=== PATIENT | female | born 1960 | race Two or more races ===

== ENCOUNTER 2017-01-13 06:12 | Inpatient (IN) | payer SELFPAY ==
[~2017-01-13] VITALS: Ht 149.9 cm; Wt 69.9 kg
[~2017-01-13 06:12] MED LIST: AMLO5TAB2 PO; ATOR20TA9 PO; CEFD300C37 PO; ERGO500017 PO; FAMO-79 PO; FAMO20TA7 PO; INSU100I28 AD; INSU100I28 SQ-INSULIN; LOSA25TA2 PO; LOSA50TA6 PO; MECL12.52 PO; METF10002 PO
[2017-01-13] MEDS ORDERED: SODIUM CHLORIDE 0.9% 1,000ML IVBOLUS ONE (08:00)
[2017-01-13] MEDS ORDERED: SODIUM CHLORIDE FLUSH 10ML SYR IVF ONE (08:00)
[2017-01-13] MEDS ORDERED: MORPHINE SULFATE 4 MG/ML, 1ML IVPush PRN ×2 (08:00→10:30)
[2017-01-13] MEDS ORDERED: ONDANSETRON 2MG/ML, 2ML IVPush ONE (08:00)
[2017-01-13] MEDS ORDERED: MORPHINE SULFATE 4 MG/ML, 1ML ONE (08:25)
[2017-01-13] MEDS ORDERED: ONDANSETRON 2MG/ML, 2ML ONE (08:26)
[2017-01-13 08:48] LABS: BLOOD UREA NITROGEN 49 mg/dL (7-18)
[2017-01-13] MEDS ORDERED: GLIP5TAB10 PO (08:49)
[2017-01-13] MEDS ORDERED: CEFTRIAXONE PMX 1GM/50ML 50 ML IV ONE (09:30)
[2017-01-13] MEDS ORDERED: SODIUM CHLORIDE 0.9%, 500ML IVBOLUS ONE (09:30)
[2017-01-13] MEDS ORDERED: CEFTRIAXONE PMX 1GM/50ML 50 ML ONE (10:16)
[2017-01-13] MEDS ORDERED: BISACODYL 10 MG SUPP PR PRN (10:30)
[2017-01-13] MEDS ORDERED: FUROSEMIDE 20 MG/2 ML IV ONE (10:30)
[2017-01-13] MEDS ORDERED: LABETALOL 5MG/ML, 20ML IV PRN (10:30)
[2017-01-13 10:56] VITALS: BP 163/86
[2017-01-13] MEDS: SODIUM CHLORIDE 0.9% 1,000 ML IV SCH (11:41)
[2017-01-13] MEDS: INSULIN REGULAR 100 UNITS/ML, 3ML VIAL SQ-INSULIN SCH ×3 (12:34→21:00)
[2017-01-13 13:07] VITALS: BP 146/72
[2017-01-13] MEDS ORDERED: DOCUSATE 100 MG CAPSULE PO PRN (21:00)
[2017-01-13] MEDS ORDERED: ATORVASTATIN 20 MG TABLET PO SCH (21:00)
[2017-01-13 21:45] VITALS: BP 150/70
[2017-01-13] MEDS: INSULIN DETEMIR 100 UNITS/ML, PEN SQ-INSULIN SCH (22:38)
[2017-01-13] MEDS: POLYETHYLENE GLYCOL 17 GM PACKET PO PRN (22:38)
[2017-01-13] MEDS: ACETAMINOPHEN 325 MG TABLET PO PRN (22:38)
[2017-01-13] MEDS: CEFTRIAXONE PMX 2GM/50ML 50 ML IV SCH (22:38)
[2017-01-13] MEDS: ATORVASTATIN 10 MG TABLET PO SCH (22:40)
[2017-01-14 04:02] VITALS: BP 127/58
[2017-01-14 06:43] LABS: BLOOD UREA NITROGEN 39 mg/dL (7-18)
[2017-01-14] MEDS: INSULIN REGULAR 100 UNITS/ML, 3ML VIAL SQ-INSULIN SCH ×4 (07:00→21:27)
[2017-01-14 08:14] VITALS: BP 137/79
[2017-01-14] MEDS: SODIUM CHLORIDE 0.9% 1,000 ML IV SCH (09:30)
[2017-01-14] MEDS: INSULIN DETEMIR 100 UNITS/ML, PEN SQ-INSULIN SCH ×2 (09:32→21:28)
[2017-01-14] MEDS: POLYETHYLENE GLYCOL 17 GM PACKET PO PRN (09:50)
[2017-01-14] MEDS ORDERED: SODIUM CHLORIDE NASAL SPRAY 45ML BOTTLE NAS PRN (10:00)
[2017-01-14 15:53] VITALS: BP 167/80
[2017-01-14 19:31] VITALS: BP 181/80
[2017-01-14] MEDS: ACETAMINOPHEN 325 MG TABLET PO PRN (19:34)
[2017-01-14] MEDS: ATORVASTATIN 10 MG TABLET PO SCH (21:28)
[2017-01-14] MEDS ORDERED: MAGNESIUM HYDROXIDE 8%, 30ML UDC PO ONE (21:30)
[2017-01-14 21:36] VITALS: BP 170/84
[2017-01-14] MEDS ORDERED: TEMAZEPAM 15 MG CAPSULE PO PRN (22:00)
[2017-01-14] MEDS: CEFTRIAXONE PMX 2GM/50ML 50 ML IV SCH (22:43)
[2017-01-15 01:08] VITALS: BP 163/83
[2017-01-15 05:50] LABS: BLOOD UREA NITROGEN 35 mg/dL (7-18)
[2017-01-15] MEDS: INSULIN REGULAR 100 UNITS/ML, 3ML VIAL SQ-INSULIN SCH ×4 (07:00→21:11)
[2017-01-15 07:50] VITALS: BP 142/72
[2017-01-15] MEDS: SODIUM CHLORIDE 0.9% 1,000 ML IV SCH ×2 (09:34→18:27)
[2017-01-15] MEDS: ONDANSETRON 2MG/ML, 2ML IVP PRN ×2 (09:38→16:13)
[2017-01-15] MEDS: HYDROcodone/APAP 5/325 TABLET PO PRN ×3 (09:38→22:43)
[2017-01-15] MEDS: INSULIN DETEMIR 100 UNITS/ML, PEN SQ-INSULIN SCH ×2 (09:39→21:12)
[2017-01-15 12:35] VITALS: BP 154/78
[2017-01-15 20:05] VITALS: BP 167/64
[2017-01-15] MEDS: ATORVASTATIN 10 MG TABLET PO SCH (21:12)
[2017-01-15] MEDS: CEFTRIAXONE PMX 2GM/50ML 50 ML IV SCH (22:36)
[2017-01-16] VITALS (7 sets, daily range): BP systolic 152–186; BP diastolic 66–93
[2017-01-16 05:41] LABS: BLOOD UREA NITROGEN 29 mg/dL (7-18)
[2017-01-16] MEDS: INSULIN REGULAR 100 UNITS/ML, 3ML VIAL SQ-INSULIN SCH ×4 (07:00→20:24)
[2017-01-16] MEDS: ONDANSETRON 2MG/ML, 2ML IVP PRN ×2 (08:14→15:38)
[2017-01-16] MEDS: HYDROcodone/APAP 5/325 TABLET PO PRN ×2 (08:15→23:36)
[2017-01-16] MEDS ORDERED: FUROSEMIDE 20 MG/2 ML IV SCH (09:00)
[2017-01-16] MEDS: INSULIN DETEMIR 100 UNITS/ML, PEN SQ-INSULIN SCH ×2 (09:16→20:36)
[2017-01-16] MEDS ORDERED: SODIUM POLYSTYRENE SULFONATE ORAL SUSP PO ONE (13:30)
[2017-01-16] MEDS ORDERED: CALCIUM GLUCONATE 4.6 MEQ in SODIUM CHLORIDE 0.9% 50 ML IV ONE (13:30)
[2017-01-16] MEDS: SODIUM CHLORIDE 0.9% 1,000 ML IV SCH ×2 (14:17→23:25)
[2017-01-16] MEDS: ATORVASTATIN 10 MG TABLET PO SCH (19:32)
[2017-01-16] MEDS: SODIUM BICARBONATE 650 MG TABLET PO SCH (19:32)
[2017-01-16] MEDS: CEFTRIAXONE PMX 2GM/50ML 50 ML IV SCH (23:24)
[2017-01-17 02:00] VITALS: BP 148/76
[2017-01-17 06:19] LABS: BLOOD UREA NITROGEN 30 mg/dL (7-18)
[2017-01-17 06:40] VITALS: BP 165/79
[2017-01-17] MEDS: INSULIN REGULAR 100 UNITS/ML, 3ML VIAL SQ-INSULIN SCH ×2 (07:00→11:00)
[2017-01-17] MEDS: SODIUM BICARBONATE 650 MG TABLET PO SCH (08:28)
[2017-01-17] MEDS: INSULIN DETEMIR 100 UNITS/ML, PEN SQ-INSULIN SCH (08:29)
[2017-01-17] MEDS: ONDANSETRON 2MG/ML, 2ML IVP PRN (08:36)
[2017-01-17 11:50] VITALS: BP 154/74
[2017-01-17] MEDS ORDERED: ONDA4TAB10 PO (14:06)
== END 2017-01-17 16:37 | disposition home or self-care (01) | DRG 682 ==
LOC: ED 09:31 → EDIP 09:32 → ED 09:42 → 3NE 10:41 → 4WST 01-16 15:38 → DCLOUNGE 01-17 15:52
PROVIDERS: ADMIT Internal Medicine; ATTEND Internal Medicine
DX: N17.0 Acute kidney failure with tubular necrosis (principal); E43 Unspecified severe protein-calorie malnutrition; N39.0 Urinary tract infection, site not specified; E78.5 Hyperlipidemia, unspecified; E87.5 Hyperkalemia; E11.65 Type 2 diabetes mellitus with hyperglycemia; N18.9 Chronic kidney disease, unspecified; D64.9 Anemia, unspecified; I13.10 Hypertensive heart and chronic kidney disease without heart failure, with stage 1 through stage 4 chronic kidney disease, or unspecified chronic kidney disease; E11.22 Type 2 diabetes mellitus with diabetic chronic kidney disease; Z79.4 Long term (current) use of insulin; Z98.51 Tubal ligation status; Z83.3 Family history of diabetes mellitus; Z68.31 Body mass index [BMI] 31.0-31.9, adult; Z79.84 Long term (current) use of oral hypoglycemic drugs
CPT/HCPCS: 36415; 76770; 80048; 81001; 82040; 82436; 82570; 82728; 82962; 83036; 83540; 83550; 83605; 84132; 84133; 84300; 84466; 85025; 87040; 87086; 93005; 96361; 96374; 96375; J0610; J0696; J1815; J2405; J1940; J7030; J7040

== ENCOUNTER 2017-02-07 11:03 | Inpatient (IN) | payer MEDICAID, OTHER ==
[~2017-02-07] VITALS: Ht 154.9 cm; Wt 66.3 kg
[~2017-02-07 11:03] MED LIST changes: +GLIP5TAB10 PO; +ONDA4TAB10 PO
[2017-02-07] MEDS ORDERED: CEPH-376 PO (11:25)
[2017-02-07] MEDS ORDERED: LOSA100T6 PO (11:25)
[2017-02-07] MEDS ORDERED: METH750T2 PO (11:25)
[2017-02-07] MEDS ORDERED: ONDA4TAB13 SL (11:25)
[2017-02-07] MEDS ORDERED: SODIUM CHLORIDE FLUSH 10ML SYR IVF ONE (12:00)
[2017-02-07] MEDS ORDERED: SODIUM CHLORIDE 0.9% 1,000 ML IV ONE (12:00)
[2017-02-07] MEDS ORDERED: ONDANSETRON 2MG/ML, 2ML IVPush ONE (12:00)
[2017-02-07] MEDS ORDERED: MORPHINE SULFATE 4 MG/ML, 1ML IVPush PRN (12:00)
[2017-02-07] MEDS ORDERED: MORPHINE SULFATE 4 MG/ML, 1ML ONE (12:17)
[2017-02-07] MEDS ORDERED: ONDANSETRON 2MG/ML, 2ML ONE (12:17)
[2017-02-07 12:36] LABS: ASPARTATE AMINO TRANSFERASE 16 U/L (15-37); BLOOD UREA NITROGEN 48 mg/dL (7-18)
[2017-02-07] MEDS ORDERED: hydrALAzine 20 MG/ML, 1ML IVPush PRN (15:00)
[2017-02-07] MEDS ORDERED: POLYETHYLENE GLYCOL 17 GM PACKET PO PRN (15:00)
[2017-02-07] MEDS ORDERED: ACETAMINOPHEN 325 MG TABLET PO PRN (15:00)
[2017-02-07] MEDS ORDERED: PHARMACY MAY ADJ FOR RENAL FX MC PRN (15:00)
[2017-02-07] MEDS ORDERED: LORazepam 2 MG/ML, 1ML IVPush PRN (15:00)
[2017-02-07] MEDS ORDERED: CYCLOBENZAPRINE 10 MG TABLET PO PRN (15:00)
[2017-02-07] MEDS ORDERED: DOCUSATE 100 MG CAPSULE PO PRN (15:00)
[2017-02-07 15:11] LABS: PTH INTACT INTERPRETATION ** Comment **
[2017-02-07 15:57] LABS: PARATHYROID HORMONE INTACT 100.9 pg/mL (14-72)
[2017-02-07] MEDS: INSULIN ASPART 100 UNITS/ML, PEN SQ-INSULIN SCH ×2 (16:00→21:13)
[2017-02-07 16:45] VITALS: BP 152/83
[2017-02-07] MEDS: FUROSEMIDE 40 MG/4 ML IV SCH (17:05)
[2017-02-07] MEDS: HEPARIN 5,000 UNITS/ML, 1ML SQ SCH (17:05)
[2017-02-07] MEDS: CEFOTETAN PMX 2GM/50ML 50 ML IV SCH (17:52)
[2017-02-07 19:23] VITALS: BP 123/65
[2017-02-07] MEDS: INSULIN DETEMIR 100 UNITS/ML, PEN SQ-INSULIN SCH (21:12)
[2017-02-07] MEDS: HYDROcodone/APAP 5/325 TABLET PO PRN (21:13)
[2017-02-07] MEDS: ATORVASTATIN 40 MG TABLET PO SCH (21:13)
[2017-02-08 02:38] VITALS: BP 145/75
[2017-02-08] MEDS: HYDROcodone/APAP 5/325 TABLET PO PRN (04:57)
[2017-02-08] MEDS: HEPARIN 5,000 UNITS/ML, 1ML SQ SCH ×3 (04:57→22:41)
[2017-02-08 06:20] LABS: ASPARTATE AMINO TRANSFERASE 16 U/L (15-37); BLOOD UREA NITROGEN 47 mg/dL (7-18)
[2017-02-08] MEDS: INSULIN ASPART 100 UNITS/ML, PEN SQ-INSULIN SCH ×4 (07:00→22:44)
[2017-02-08 07:13] VITALS: BP 122/68
[2017-02-08] MEDS: ONDANSETRON 2MG/ML, 2ML IVPush PRN (08:10)
[2017-02-08] MEDS: FUROSEMIDE 40 MG/4 ML IV SCH ×3 (08:10→22:41)
[2017-02-08] MEDS: INSULIN DETEMIR 100 UNITS/ML, PEN SQ-INSULIN SCH ×2 (09:00→21:00)
[2017-02-08] MEDS ORDERED: SODIUM POLYSTYRENE SULFONATE ORAL SUSP PO ONE (10:30)
[2017-02-08] MEDS: PROMETHAZINE 25 MG/ML, 1ML IM PRN (12:19)
[2017-02-08 12:24] VITALS: BP 145/83
[2017-02-08] MEDS: IRON SUCROSE COMPLEX 100MG/5ML IV SCH (12:28)
[2017-02-08] MEDS: ARANESP 60 MCG/ML **ESRD SQ SCH (12:29)
[2017-02-08 13:14] VITALS: BP 137/80
[2017-02-08] MEDS: CIMETIDINE 200 MG TABLET PO SCH ×2 (13:21→22:40)
[2017-02-08] MEDS: ERGOCALCIFEROL 50,000 UNIT CAPSULE PO SCH (13:21)
[2017-02-08] MEDS: SODIUM BICARBONATE 650 MG TABLET PO SCH ×2 (13:21→22:40)
[2017-02-08 17:06] LABS: OCCBLD OBC PASS
[2017-02-08] MEDS: CEFOTETAN PMX 2GM/50ML 50 ML IV SCH (18:20)
[2017-02-08 21:02] VITALS: BP 128/78
[2017-02-08] MEDS: ATORVASTATIN 40 MG TABLET PO SCH (22:40)
[2017-02-09 03:34] VITALS: BP 120/69
[2017-02-09 05:21] LABS: ASPARTATE AMINO TRANSFERASE 20 U/L (15-37); BLOOD UREA NITROGEN 42 mg/dL (7-18)
[2017-02-09] MEDS: HEPARIN 5,000 UNITS/ML, 1ML SQ SCH ×2 (05:40→16:00)
[2017-02-09 08:00] VITALS: BP 137/74
[2017-02-09] MEDS: SODIUM BICARBONATE 650 MG TABLET PO SCH ×2 (08:46→22:44)
[2017-02-09] MEDS: FUROSEMIDE 40 MG/4 ML IV SCH ×2 (08:47→22:44)
[2017-02-09] MEDS: INSULIN DETEMIR 100 UNITS/ML, PEN SQ-INSULIN SCH ×2 (08:58→22:45)
[2017-02-09] MEDS: INSULIN ASPART 100 UNITS/ML, PEN SQ-INSULIN SCH ×4 (08:58→22:45)
[2017-02-09] MEDS: IRON SUCROSE COMPLEX 100MG/5ML IV SCH (13:41)
[2017-02-09 14:00] VITALS: BP 132/69
[2017-02-09 19:12] VITALS: BP 157/80
[2017-02-09] MEDS: ATORVASTATIN 40 MG TABLET PO SCH (22:44)
[2017-02-09] MEDS: HYDROcodone/APAP 5/325 TABLET PO PRN (22:45)
[2017-02-10 00:36] VITALS: BP 120/67
[2017-02-10] MEDS: HEPARIN 5,000 UNITS/ML, 1ML SQ SCH ×3 (00:38→16:52)
[2017-02-10 06:07] LABS: BLOOD UREA NITROGEN 43 mg/dL (7-18)
[2017-02-10 06:10] LABS: ASPARTATE AMINO TRANSFERASE 17 U/L (15-37)
[2017-02-10 08:18] VITALS: BP 126/71
[2017-02-10] MEDS: INSULIN ASPART 100 UNITS/ML, PEN SQ-INSULIN SCH ×4 (08:34→20:44)
[2017-02-10] MEDS: SODIUM BICARBONATE 650 MG TABLET PO SCH ×2 (09:53→20:43)
[2017-02-10] MEDS: FUROSEMIDE 40 MG/4 ML IV SCH ×2 (09:53→20:43)
[2017-02-10] MEDS: INSULIN DETEMIR 100 UNITS/ML, PEN SQ-INSULIN SCH ×2 (09:54→20:43)
[2017-02-10] MEDS: IRON SUCROSE COMPLEX 100MG/5ML IV SCH (14:21)
[2017-02-10 14:46] VITALS: BP 179/85
[2017-02-10 17:20] VITALS: BP 195/96
[2017-02-10 18:12] VITALS: BP 162/81
[2017-02-10 18:27] VITALS: BP 165/82
[2017-02-10] MEDS: HYDROcodone/APAP 5/325 TABLET PO PRN (18:39)
[2017-02-10] MEDS: ATORVASTATIN 40 MG TABLET PO SCH (20:43)
[2017-02-11] MEDS: HEPARIN 5,000 UNITS/ML, 1ML SQ SCH ×3 (00:38→17:00)
[2017-02-11 00:41] VITALS: BP 130/72
[2017-02-11 07:24] VITALS: BP 129/65
[2017-02-11] MEDS: INSULIN ASPART 100 UNITS/ML, PEN SQ-INSULIN SCH ×4 (07:41→22:06)
[2017-02-11] MEDS: SODIUM BICARBONATE 650 MG TABLET PO SCH ×2 (08:13→22:05)
[2017-02-11] MEDS: INSULIN DETEMIR 100 UNITS/ML, PEN SQ-INSULIN SCH ×2 (08:13→22:05)
[2017-02-11] MEDS: HYDROcodone/APAP 5/325 TABLET PO PRN ×2 (08:55→22:05)
[2017-02-11 09:48] LABS: BLOOD UREA NITROGEN 44 mg/dL (7-18)
[2017-02-11 09:51] LABS: ASPARTATE AMINO TRANSFERASE 18 U/L (15-37)
[2017-02-11] MEDS: FUROSEMIDE 40 MG/4 ML IV SCH ×2 (10:46→22:05)
[2017-02-11] MEDS: IRON SUCROSE COMPLEX 100MG/5ML IV SCH (13:24)
[2017-02-11 14:05] VITALS: BP 109/67
[2017-02-11] MEDS: ONDANSETRON 2MG/ML, 2ML IVPush PRN (14:07)
[2017-02-11 19:59] VITALS: BP 130/71
[2017-02-11] MEDS: ATORVASTATIN 40 MG TABLET PO SCH (22:05)
[2017-02-11] MEDS: PROMETHAZINE 25 MG/ML, 1ML IM PRN (22:58)
[2017-02-12 02:07] VITALS: BP 122/66
[2017-02-12 05:08] LABS: ASPARTATE AMINO TRANSFERASE 46 U/L (15-37); BLOOD UREA NITROGEN 43 mg/dL (7-18)
[2017-02-12] MEDS: HEPARIN 5,000 UNITS/ML, 1ML SQ SCH ×3 (08:15→16:00)
[2017-02-12] MEDS: FUROSEMIDE 40 MG/4 ML IV SCH ×2 (09:00→21:00)
[2017-02-12] MEDS: SODIUM BICARBONATE 650 MG TABLET PO SCH ×2 (09:00→21:00)
[2017-02-12] MEDS ORDERED: LIDOCAINE 2%, 20ML ONE ×2 (10:44→11:15)
[2017-02-12] MEDS ORDERED: FENTANYL PF 100 MCG/2ML ONE (11:03)
[2017-02-12] MEDS ORDERED: FLUMAZENIL 0.1 MG/1 ML, 5ML ONE (11:03)
[2017-02-12] MEDS ORDERED: MIDAZOLAM 1 MG/ML, 5ML ONE (11:03)
[2017-02-12] MEDS ORDERED: NALOXONE 1 MG/ML, 2ML ONE (11:03)
[2017-02-12] MEDS: INSULIN ASPART 100 UNITS/ML, PEN SQ-INSULIN SCH ×3 (12:44→21:00)
[2017-02-12 14:53] LABS: A/G RATIO 0.5 (0.7-1.7); ALBUMIN 1.6 g/dL (2.9-4.4); ALPHA-1-GLOBULIN 0.2 g/dL (0.0-0.4); BETA GLOBULIN 0.9 g/dL (0.7-1.3); GAMMA GLOBULIN 0.9 g/dL (0.4-1.8); PROTEIN TOTAL 4.7 g/dL (6.0-8.5)
[2017-02-12] MEDS: ATORVASTATIN 40 MG TABLET PO SCH (21:00)
[2017-02-13] MEDS: PROMETHAZINE 25 MG/ML, 1ML IM PRN ×2 (05:00→22:21)
[2017-02-13] MEDS: INSULIN ASPART 100 UNITS/ML, PEN SQ-INSULIN SCH ×4 (07:00→20:58)
[2017-02-13] MEDS: HEPARIN 5,000 UNITS/ML, 1ML SQ SCH ×2 (08:00→16:00)
[2017-02-13 08:50] VITALS: BP 132/74
[2017-02-13] MEDS: FUROSEMIDE 40 MG/4 ML IV SCH ×2 (09:00→20:58)
[2017-02-13] MEDS: SODIUM BICARBONATE 650 MG TABLET PO SCH ×2 (09:00→20:58)
[2017-02-13] MEDS: INSULIN DETEMIR 100 UNITS/ML, PEN SQ-INSULIN SCH ×2 (09:00→21:04)
[2017-02-13 12:02] LABS: UR ALBUMIN 53.5 % (.); UR ALPHA-1-GLOBULIN 6.3 % (.); UR ALPHA-2-GLOBULIN 9.4 % (.); UR BETA GLOBULIN 13.5 % (.); UR GAMMA GLOBULIN 17.4 % (.); UR M-SPIKE % Not Observed % (Not Observed)
[2017-02-13 14:00] VITALS: BP 139/83
[2017-02-13 20:34] VITALS: BP 140/65
[2017-02-13] MEDS: ATORVASTATIN 40 MG TABLET PO SCH (20:58)
[2017-02-13] MEDS: HYDROcodone/APAP 5/325 TABLET PO PRN (22:21)
[2017-02-14 02:50] VITALS: BP 113/68
[2017-02-14] MEDS: INSULIN ASPART 100 UNITS/ML, PEN SQ-INSULIN SCH ×4 (07:00→21:46)
[2017-02-14 07:11] VITALS: BP 100/63
[2017-02-14 07:21] LABS: ASPARTATE AMINO TRANSFERASE 90 U/L (15-37); BLOOD UREA NITROGEN 22 mg/dL (7-18)
[2017-02-14] MEDS: HEPARIN 5,000 UNITS/ML, 1ML SQ SCH ×3 (08:30→16:11)
[2017-02-14] MEDS: SODIUM BICARBONATE 650 MG TABLET PO SCH ×2 (08:30→21:36)
[2017-02-14] MEDS: FUROSEMIDE 40 MG/4 ML IV SCH ×2 (08:30→21:36)
[2017-02-14] MEDS: INSULIN DETEMIR 100 UNITS/ML, PEN SQ-INSULIN SCH ×2 (08:34→21:46)
[2017-02-14 11:49] LABS: HEPATITIS C VIRUS ANTIBODY Nonreactive (Nonreactive)
[2017-02-14 12:29] LABS: HEP B SURF. AB < 3.1 mIU/mL (0.0-10.0)
[2017-02-14 12:57] LABS: ASPARTATE AMINO TRANSFERASE 67 U/L (15-37); BLOOD UREA NITROGEN 29 mg/dL (7-18)
[2017-02-14 15:32] VITALS: BP 161/80
[2017-02-14 18:58] VITALS: BP 136/74
[2017-02-14] MEDS: ATORVASTATIN 40 MG TABLET PO SCH (21:35)
[2017-02-15] VITALS (8 sets, daily range): BP systolic 73–158; BP diastolic 46–76
[2017-02-15] MEDS: PROMETHAZINE 25 MG/ML, 1ML IM PRN (05:09)
[2017-02-15 06:31] LABS: ASPARTATE AMINO TRANSFERASE 107 U/L (15-37); BLOOD UREA NITROGEN 29 mg/dL (7-18)
[2017-02-15] MEDS: INSULIN ASPART 100 UNITS/ML, PEN SQ-INSULIN SCH ×4 (07:00→21:00)
[2017-02-15] MEDS: HEPARIN 5,000 UNITS/ML, 1ML SQ SCH ×3 (08:00→21:11)
[2017-02-15] MEDS ORDERED: morphine SULFATE 10 MG/ML, 1ML IVPush PRN ×2 (08:30)
[2017-02-15] MEDS: SODIUM BICARBONATE 650 MG TABLET PO SCH ×2 (09:00→21:10)
[2017-02-15] MEDS: FUROSEMIDE 40 MG/4 ML IV SCH ×2 (09:00→21:00)
[2017-02-15] MEDS: INSULIN DETEMIR 100 UNITS/ML, PEN SQ-INSULIN SCH ×2 (09:00→21:11)
[2017-02-15] MEDS: ERGOCALCIFEROL 50,000 UNIT CAPSULE PO SCH (10:30)
[2017-02-15] MEDS ORDERED: PROTAMINE SULFATE 10 MG/ML, 5ML ONE (15:00)
[2017-02-15] MEDS ORDERED: HEPARIN 1,000 UNITS/ML, 10ML ONE (15:00)
[2017-02-15] MEDS ORDERED: BUPIVACAINE/PF-EPI 0.5% 1:200K ONE (15:00)
[2017-02-15] MEDS ORDERED: BUPIVACAINE/PF 0.5% ONE (15:00)
[2017-02-15] MEDS ORDERED: THROMBIN 5,000 UNIT VIAL TP ONE (15:01)
[2017-02-15] MEDS ORDERED: PROPOFOL 10 MG/ML, 20ML ONE (15:40)
[2017-02-15] MEDS ORDERED: PHENYLEPHRINE 10 MG/ML ONE (15:40)
[2017-02-15] MEDS ORDERED: ONDANSETRON 2MG/ML, 2ML ONE (15:40)
[2017-02-15] MEDS ORDERED: CEFAZOLIN 1,000 MG ONE (15:40)
[2017-02-15] MEDS ORDERED: FENTANYL PF 100 MCG/2ML ONE ×2 (15:42→17:24)
[2017-02-15] MEDS ORDERED: ACETAMINOPHEN 325 MG TABLET PO PRN (16:30)
[2017-02-15] MEDS ORDERED: OXYcodone 5 MG/5 ML ORAL.SOL UDC PO PRN (16:30)
[2017-02-15] MEDS ORDERED: PROMETHAZINE 25 MG/ML, 1ML IV PRN (16:30)
[2017-02-15] MEDS ORDERED: ACETAMINOPHEN 650 MG/20.3 ML UDC ONE (17:24)
[2017-02-15] MEDS ORDERED: OXYcodone 5 MG/5 ML ORAL.SOL UDC ONE (17:25)
[2017-02-15] MEDS: FENTANYL PF 100 MCG/2ML IV PRN ×2 (17:29→17:45)
[2017-02-15] MEDS: ONDANSETRON 2MG/ML, 2ML IVPush PRN (19:27)
[2017-02-15] MEDS: ATORVASTATIN 40 MG TABLET PO SCH (21:00)
[2017-02-15] MEDS: ARANESP 60 MCG/ML **ESRD SQ SCH (21:50)
[2017-02-16 01:00] VITALS: BP 99/61
[2017-02-16] MEDS: HEPARIN 5,000 UNITS/ML, 1ML SQ SCH ×3 (05:24→20:31)
[2017-02-16] MEDS: INSULIN ASPART 100 UNITS/ML, PEN SQ-INSULIN SCH ×4 (07:00→20:33)
[2017-02-16 07:39] VITALS: BP 131/60
[2017-02-16] MEDS: HYDROcodone/APAP 5/325 TABLET PO PRN (07:44)
[2017-02-16] MEDS: FUROSEMIDE 40 MG/4 ML IV SCH (09:00)
[2017-02-16] MEDS: INSULIN DETEMIR 100 UNITS/ML, PEN SQ-INSULIN SCH ×2 (09:00→20:32)
[2017-02-16 09:45] VITALS: BP 94/56
[2017-02-16] MEDS: SODIUM BICARBONATE 650 MG TABLET PO SCH ×2 (09:55→20:31)
[2017-02-16 14:05] VITALS: BP 98/59
[2017-02-16 17:45] VITALS: BP 116/67
[2017-02-16] MEDS: ATORVASTATIN 40 MG TABLET PO SCH (20:31)
[2017-02-16 21:43] VITALS: BP 116/67
[2017-02-17 01:47] VITALS: BP 113/69
[2017-02-17] MEDS: HEPARIN 5,000 UNITS/ML, 1ML SQ SCH ×2 (05:33→13:00)
[2017-02-17 07:29] VITALS: BP 106/67
[2017-02-17] MEDS: INSULIN DETEMIR 100 UNITS/ML, PEN SQ-INSULIN SCH (07:59)
[2017-02-17] MEDS: SODIUM BICARBONATE 650 MG TABLET PO SCH (08:01)
[2017-02-17] MEDS: INSULIN ASPART 100 UNITS/ML, PEN SQ-INSULIN SCH ×2 (08:01→11:00)
[2017-02-17] MEDS ORDERED: SODI650T PO (11:06)
[2017-02-17] MEDS ORDERED: DARB60VI SQ (11:06)
[2017-02-17] MEDS: ONDANSETRON 2MG/ML, 2ML IVPush PRN (12:49)
[2017-02-17] MEDS ORDERED: ASPI-496 PO (14:38)
[2017-02-19 07:06] LABS: A/G RATIO 0.6 (0.7-1.7); ALBUMIN 1.8 g/dL (2.9-4.4); ALPHA-1-GLOBULIN 0.2 g/dL (0.0-0.4); GAMMA GLOBULIN 0.9 g/dL (0.4-1.8); IMMUNOGLOBULIN A 482 mg/dL (87-352); IMMUNOGLOBULIN G 833 mg/dL (700-1600); IMMUNOGLOBULIN M 129 mg/dL (26-217)
[2017-02-19 07:07] LABS: UR PROTEIN 24HR 10475 mg/24 hr (30-150)
== END 2017-02-17 15:40 | disposition home or self-care (01) | DRG 673 ==
LOC: ED 12:19 → EDIP 14:52 → 3NE 16:30 → 4WST 02-08 10:46
PROVIDERS: ADMIT Family Medicine; ATTEND Family Medicine
PROC: 0JH60WZ Insertion of Totally Implantable Vascular Access Device into Chest Subcutaneous Tissue and Fascia, Open Approach (ICD-10-PCS; 2017-02-12)
PROC: 02HV33Z Insertion of Infusion Device into Superior Vena Cava, Percutaneous Approach (ICD-10-PCS; 2017-02-12)
PROC: B548ZZA Ultrasonography of Superior Vena Cava, Guidance (ICD-10-PCS; 2017-02-12)
PROC: B5181ZA Fluoroscopy of Superior Vena Cava using Low Osmolar Contrast, Guidance (ICD-10-PCS; 2017-02-12)
PROC: 5A1D60Z (ICD-10-PCS; 2017-02-12)
PROC: 031B0ZF Bypass Right Radial Artery to Lower Arm Vein, Open Approach (ICD-10-PCS; principal; 2017-02-15 15:30)
PROC: 0WHG43Z Insertion of Infusion Device into Peritoneal Cavity, Percutaneous Endoscopic Approach (ICD-10-PCS; 2017-02-15 15:30)
DX: N17.9 Acute kidney failure, unspecified (principal); E43 Unspecified severe protein-calorie malnutrition; Q21.1 Atrial septal defect; E87.2 Acidosis; I13.2 Hypertensive heart and chronic kidney disease with heart failure and with stage 5 chronic kidney disease, or end stage renal disease; E78.5 Hyperlipidemia, unspecified; E87.5 Hyperkalemia; E11.22 Type 2 diabetes mellitus with diabetic chronic kidney disease; E11.21 Type 2 diabetes mellitus with diabetic nephropathy; E11.42 Type 2 diabetes mellitus with diabetic polyneuropathy; E11.65 Type 2 diabetes mellitus with hyperglycemia; N18.6 End stage renal disease; D63.1 Anemia in chronic kidney disease; D50.9 Iron deficiency anemia, unspecified; M54.5 Low back pain; R82.71 Bacteriuria; I50.9 Heart failure, unspecified; R19.5 Other fecal abnormalities; Z98.51 Tubal ligation status; Z83.3 Family history of diabetes mellitus; Z68.27 Body mass index [BMI] 27.0-27.9, adult; Z99.2 Dependence on renal dialysis
CPT/HCPCS: 36415; 36558; 71010; 76700; 76937; 77001; 80053; 80061; 81001; 81050; 82272; 82306; 82310; 82330; 82570; 82728; 82784; 82962; 83540; 83550; 83735; 83880; 83970; 84100; 84155; 84156; 84165; 84166; 84550; 85025; 85610; 85730; 86334; 86480; 86704; 86706; 86803; 87040; 87086; 87340; 93005; 93306; 96361; 96374; 96375; 99156; 99157; C1894; J0690; J0882; J1644; J1756; J1815; J1940; J2250; J2405; J2550; J2704; J2720; J3010; J3490; C1750; C1751; J0360; J1642; J2270; J2310; J2370; J7030; S0074

== ENCOUNTER 2017-06-06 09:02 | Inpatient (IN) | payer OTHER ==
[~2017-06-06] VITALS: Ht 154.9 cm; Wt 65.0 kg
[~2017-06-06 09:02] MED LIST changes: +ASPI-496 PO; +CEPH-376 PO; +DARB60VI SQ; +LOSA100T6 PO; +METH750T2 PO; +ONDA4TAB13 SL; +SODI650T PO
[2017-06-06 09:59] LABS: HEMATOCRIT 32.8 % (34.6-47.8); HEMOGLOBIN 11.2 g/dL (11.7-16.4); WHITE BLOOD COUNT 6.4 x10^3/uL (3.4-10)
[2017-06-06] MEDS ORDERED: SODIUM CHLORIDE FLUSH 10ML SYR IVF ONE (10:00)
[2017-06-06] MEDS ORDERED: MORPHINE SULFATE 4 MG/ML, 1ML IVPush PRN ×2 (10:00→15:00)
[2017-06-06] MEDS ORDERED: ONDANSETRON 2MG/ML, 2ML IVPush ONE (10:00)
[2017-06-06 10:11] LABS: BLOOD UREA NITROGEN 21 mg/dL (7-18)
[2017-06-06] MEDS ORDERED: MORPHINE SULFATE 4 MG/ML, 1ML ONE (11:11)
[2017-06-06] MEDS ORDERED: ONDANSETRON 2MG/ML, 2ML ONE (11:12)
[2017-06-06] MEDS ORDERED: SODIUM CHLORIDE FLUSH 10ML SYR IVF PRN (12:00)
[2017-06-06 13:31] VITALS: BP 152/79
[2017-06-06] MEDS ORDERED: morphine SULFATE 10 MG/ML, 1ML IVPush PRN (18:30)
[2017-06-06] MEDS ORDERED: POLYETHYLENE GLYCOL 17 GM PACKET PO PRN (18:30)
[2017-06-06] MEDS ORDERED: hydrALAzine 20 MG/ML, 1ML IVPush PRN (18:30)
[2017-06-06] MEDS ORDERED: OXYcodone IR 5MG TABLET PO PRN (18:30)
[2017-06-06] MEDS ORDERED: BISACODYL 10 MG SUPP PR PRN (18:30)
[2017-06-06] MEDS ORDERED: ONDANSETRON ODT 4 MG PO PRN ×2 (18:30)
[2017-06-06] MEDS ORDERED: ONDANSETRON 2MG/ML, 2ML IVPush PRN (18:30)
[2017-06-06 20:00] VITALS: BP 123/77
[2017-06-06] MEDS ORDERED: ERGOCALCIFEROL 50,000 UNIT CAPSULE PO SCH (20:00)
[2017-06-06] MEDS ORDERED: DARBEPOETIN 60 MCG/ML SQ SCH (20:00)
[2017-06-06] MEDS: INSULIN DETEMIR 100 UNITS/ML, PEN SQ-INSULIN SCH (21:00)
[2017-06-06] MEDS: HEPARIN 5,000 UNITS/ML, 1ML SQ SCH (22:00)
[2017-06-06] MEDS: SODIUM BICARBONATE 650 MG TABLET PO SCH (22:48)
[2017-06-06] MEDS: ATORVASTATIN 40 MG TABLET PO SCH (22:48)
[2017-06-06] MEDS: METHOCARBAMOL 750 MG TABLET PO SCH (22:48)
[2017-06-07 02:00] VITALS: BP 101/66
[2017-06-07] MEDS: HEPARIN 5,000 UNITS/ML, 1ML SQ SCH ×3 (06:00→22:15)
[2017-06-07 06:13] LABS: HEMATOCRIT 29.7 % (34.6-47.8); HEMOGLOBIN 10.1 g/dL (11.7-16.4); WHITE BLOOD COUNT 6.5 x10^3/uL (3.4-10)
[2017-06-07 06:25] LABS: BLOOD UREA NITROGEN 37 mg/dL (7-18)
[2017-06-07 06:37] LABS: ASPARTATE AMINO TRANSFERASE 13 U/L (15-37); FERRITIN 1236.4 ng/mL (8-252); TOTAL IRON BINDING CAPACITY 188 mcg/dL (250-450)
[2017-06-07 07:52] VITALS: BP 90/52
[2017-06-07] MEDS: SODIUM BICARBONATE 650 MG TABLET PO SCH ×2 (08:11→21:00)
[2017-06-07] MEDS: ASPIRIN 81 MG TABLET EC PO SCH ×2 (08:11→17:42)
[2017-06-07] MEDS: SENNA/DOCUSATE TABLET PO SCH (08:11)
[2017-06-07] MEDS: LOSARTAN 50MG TABLET PO SCH ×3 (08:11→17:48)
[2017-06-07] MEDS: INSULIN DETEMIR 100 UNITS/ML, PEN SQ-INSULIN SCH ×2 (09:00→22:22)
[2017-06-07 13:05] VITALS: BP 103/62
[2017-06-07] MEDS ORDERED: LIDOCAINE 2%, 20ML ONE (13:10)
[2017-06-07] MEDS ORDERED: MIDAZOLAM 1 MG/ML, 5ML ONE (13:13)
[2017-06-07] MEDS ORDERED: FENTANYL PF 100 MCG/2ML ONE (13:13)
[2017-06-07] MEDS ORDERED: NITROGLYCERIN 5 MG/ML, 10ML ONE (13:13)
[2017-06-07] MEDS ORDERED: HEPARIN 1,000 UNITS/ML, 10ML ONE (13:13)
[2017-06-07] MEDS ORDERED: FLUMAZENIL 0.1 MG/1 ML, 5ML ONE (13:13)
[2017-06-07] MEDS ORDERED: NALOXONE 1 MG/ML, 2ML ONE (13:14)
[2017-06-07] MEDS ORDERED: PROTAMINE SULFATE 10 MG/ML, 25ML ONE (13:14)
[2017-06-07] MEDS ORDERED: HEPARIN 5,000 UNITS/ML, 1ML SQ SCH (19:00)
[2017-06-07 19:33] VITALS: BP 108/65
[2017-06-07 19:58] LABS: HEP B SURF. AB 54.3 mIU/mL (0.0-10.0)
[2017-06-07] MEDS: ATORVASTATIN 40 MG TABLET PO SCH (22:15)
[2017-06-07] MEDS: METHOCARBAMOL 750 MG TABLET PO SCH (22:15)
[2017-06-08 00:28] VITALS: BP 98/57
[2017-06-08 05:52] LABS: BLOOD UREA NITROGEN 35 mg/dL (7-18); HEMATOCRIT 29.6 % (34.6-47.8); HEMOGLOBIN 10.3 g/dL (11.7-16.4); WHITE BLOOD COUNT 5.3 x10^3/uL (3.4-10)
[2017-06-08] MEDS: HEPARIN 5,000 UNITS/ML, 1ML SQ SCH ×3 (06:08→20:17)
[2017-06-08] MEDS: SENNA/DOCUSATE TABLET PO SCH (09:00)
[2017-06-08 09:01] VITALS: BP 110/64
[2017-06-08] MEDS: INSULIN DETEMIR 100 UNITS/ML, PEN SQ-INSULIN SCH ×2 (09:01→20:17)
[2017-06-08] MEDS ORDERED: CATHFLO-ALTEPLASE 2 MG/2 ML CATHFLUSH ONE ×2 (10:00)
[2017-06-08] MEDS ORDERED: FLUO20CA8 PO (12:44)
[2017-06-08] MEDS ORDERED: FURO-93 PO (12:44)
[2017-06-08] MEDS: CEFTRIAXONE PMX 1GM/50ML 50 ML IV SCH (14:06)
[2017-06-08] MEDS: FUROSEMIDE 20 MG TABLET PO SCH (14:08)
[2017-06-08] MEDS: ASPIRIN 81 MG TABLET EC PO SCH (14:08)
[2017-06-08] MEDS: LOSARTAN 50MG TABLET PO SCH (14:10)
[2017-06-08] MEDS: FLUOXETINE 10 MG CAP PO SCH (14:11)
[2017-06-08 14:19] VITALS: BP 145/71
[2017-06-08 16:53] LABS: PATH.CAST-FLAG NOT PRESENT; SPERM-FLAG NOT PRESENT; SRC-FLAG NOT PRESENT; XTAL-FLAG NOT PRESENT; YLC-FLAG NOT PRESENT
[2017-06-08 19:26] VITALS: BP 121/75
[2017-06-08] MEDS: ATORVASTATIN 40 MG TABLET PO SCH (20:16)
[2017-06-08] MEDS ORDERED: METHOCARBAMOL 750 MG TABLET PO SCH (21:00)
[2017-06-09 01:58] VITALS: BP 104/65
[2017-06-09] MEDS: HEPARIN 5,000 UNITS/ML, 1ML SQ SCH ×2 (06:37→13:59)
[2017-06-09 08:00] VITALS: BP 119/69
[2017-06-09] MEDS: FUROSEMIDE 20 MG TABLET PO SCH (08:59)
[2017-06-09] MEDS: SENNA/DOCUSATE TABLET PO SCH (08:59)
[2017-06-09] MEDS: ASPIRIN 81 MG TABLET EC PO SCH (08:59)
[2017-06-09] MEDS: FLUOXETINE 10 MG CAP PO SCH (08:59)
[2017-06-09] MEDS: LOSARTAN 50MG TABLET PO SCH (09:00)
[2017-06-09] MEDS: INSULIN DETEMIR 100 UNITS/ML, PEN SQ-INSULIN SCH (09:01)
[2017-06-09] MEDS: CEFTRIAXONE PMX 1GM/50ML 50 ML IV SCH (12:27)
[2017-06-09] MEDS ORDERED: CEFD300C37 PO (13:29)
[2017-06-09] MEDS ORDERED: INSU100I28 AD (13:29)
== END 2017-06-09 16:35 | disposition home or self-care (01) | DRG 252 ==
LOC: ED 10:52 → 4EST 11:49
PROVIDERS: ADMIT Internal Medicine; ATTEND Internal Medicine
PROC: 0T9B70Z Drainage of Bladder with Drainage Device, Via Natural or Artificial Opening (ICD-10-PCS; 2017-06-06)
PROC: 5A1D60Z (ICD-10-PCS; 2017-06-07)
PROC: 0WPG03Z Removal of Infusion Device from Peritoneal Cavity, Open Approach (ICD-10-PCS; principal; 2017-06-09)
PROC: 037B3ZZ Dilation of Right Radial Artery, Percutaneous Approach (ICD-10-PCS; 2017-06-09)
PROC: B31N1ZZ Fluoroscopy of Other Upper Arteries using Low Osmolar Contrast (ICD-10-PCS; 2017-06-09)
PROC: 3E1M39Z Irrigation of Peritoneal Cavity using Dialysate, Percutaneous Approach (ICD-10-PCS; 2017-06-09)
DX: T82.510A Breakdown (mechanical) of surgically created arteriovenous fistula, initial encounter (principal); K65.0 Generalized (acute) peritonitis; N18.6 End stage renal disease; I12.0 Hypertensive chronic kidney disease with stage 5 chronic kidney disease or end stage renal disease; E44.0 Moderate protein-calorie malnutrition; N20.2 Calculus of kidney with calculus of ureter; N39.0 Urinary tract infection, site not specified; D64.9 Anemia, unspecified; E11.22 Type 2 diabetes mellitus with diabetic chronic kidney disease; E11.69 Type 2 diabetes mellitus with other specified complication; E55.9 Vitamin D deficiency, unspecified; E78.5 Hyperlipidemia, unspecified; G89.29 Other chronic pain; Z87.442 Personal history of urinary calculi; Y71.2 Prosthetic and other implants, materials and accessory cardiovascular devices associated with adverse incidents; Z99.2 Dependence on renal dialysis; G43.909 Migraine, unspecified, not intractable, without status migrainosus
CPT/HCPCS: 36415; 36902; 74176; 80048; 80053; 80061; 80069; 81001; 82040; 82306; 82728; 82962; 83036; 83540; 83550; 83735; 83970; 84100; 84443; 84550; 85025; 86704; 86706; 87086; 87340; 96374; 96375; 99156; 99157; C1725; J0696; J0881; J1644; J2250; J2405; J2720; J2997; J3010; J3490; C1769; J1815; J2310

== ENCOUNTER 2017-08-28 05:55 | Emergency (ER) | payer OTHER ==
[~2017-08-28] VITALS: Ht 154.9 cm; Wt 66.6 kg
[~2017-08-28 05:55] MED LIST changes: +FLUO20CA8 PO; +FURO-93 PO
[2017-08-28] MEDS ORDERED: MECLIZINE CHEWABLE 25 MG TAB PO ONE (06:30)
[2017-08-28] MEDS ORDERED: MECLIZINE CHEWABLE 25 MG TAB ONE (06:36)
[2017-08-28 06:44] LABS: HEMATOCRIT 30.4 % (34.6-47.8); HEMOGLOBIN 10.5 g/dL (11.7-16.4); WHITE BLOOD COUNT 6.8 x10^3/uL (3.4-10)
[2017-08-28 07:08] LABS: ASPARTATE AMINO TRANSFERASE 14 U/L (15-37); BLOOD UREA NITROGEN 49 mg/dL (7-18)
[2017-08-28 07:11] LABS: IS PT STATUS REG ER OR PRE ER? YES
[2017-08-28 09:02] VITALS: BP 136/80
== END 2017-08-28 09:37 | disposition home or self-care (01) ==
LOC: ED 07:31
DX: R07.9 Chest pain, unspecified (principal); G43.909 Migraine, unspecified, not intractable, without status migrainosus; E11.22 Type 2 diabetes mellitus with diabetic chronic kidney disease; I12.0 Hypertensive chronic kidney disease with stage 5 chronic kidney disease or end stage renal disease; N18.6 End stage renal disease; N17.9 Acute kidney failure, unspecified; Z99.2 Dependence on renal dialysis; Z79.4 Long term (current) use of insulin
CPT/HCPCS: 36415; 71010; 80053; 84484; 85025; 85610; 85730; 93005; 99285

== ENCOUNTER 2017-11-18 14:27 | Emergency (ER) | payer MEDICAID, OTHER ==
[~2017-11-18] VITALS: Ht 154.9 cm; Wt 64.0 kg
[2017-11-18] MEDS ORDERED: ONDANSETRON 2MG/ML, 2ML ONE (15:14)
[2017-11-18] MEDS ORDERED: MORPHINE SULFATE 4 MG/ML, 1ML ONE (15:15)
[2017-11-18] MEDS ORDERED: SODIUM CHLORIDE FLUSH 10ML SYR IVF ONE (15:30)
[2017-11-18] MEDS ORDERED: MORPHINE SULFATE 4 MG/ML, 1ML IVPush PRN (15:30)
[2017-11-18] MEDS ORDERED: ONDANSETRON 2MG/ML, 2ML IVPush ONE (15:30)
[2017-11-18 15:35] LABS: BASOPHILS # (AUTO) 0.01 x10^3/uL (0-0.1); BASOPHILS % (AUTO) 0 % (0-1); EOSINOPHILS # (AUTO) 0.02 x10^3/uL (0-0.4); EOSINOPHILS % (AUTO) 0 % (1-7); LYMPHOCYTES # (AUTO) 0.69 x10^3/uL (1-3.4); LYMPHOCYTES % (AUTO) 8 % (22-44); MD NO; MEAN CORPUSCULAR HEMOGLOBIN 31.5 pg (27.0-34.8); MEAN CORPUSCULAR HGB CONC 34.2 g/dL (32.4-35.8); MEAN CORPUSCULAR VOLUME 92.4 fL (80-100); MEAN PLATELET VOLUME 9.3 fL (7.4-10.4); MONOCYTES # (AUTO) 0.53 x10^3/uL (0.2-0.8); MONOCYTES % (AUTO) 6 % (2-9); NEUTROPHILS # (AUTO) 7.45 x10^3/uL (1.8-6.8); NEUTROPHILS % (AUTO) 86 % (42-75); PLATELET COUNT 229 x10^3/uL (130-400); RED BLOOD COUNT 3.55 x10^6/uL (3.82-5.3); RED CELL DISTRIBUTION WIDTH 12.6 % (9.6-15.2)
[2017-11-18 15:44] LABS: INTERNATIONAL NORMALIZED RATIO 0.92 (0.93-1.1); PROTHROMBIN TIME 9.6 Seconds (9.6-11.5)
[2017-11-18 15:47] VITALS: BP 125/62
[2017-11-18 15:47] LABS: ALANINE AMINOTRANSFERASE 19 U/L (12-78); ANION GAP 14 mmol/L (5-15); CHLORIDE 93 mmol/L (98-107); CREATININE 5.67 mg/dL (0.55-1.02)
[2017-11-18 15:49] LABS: ALKALINE PHOSPHATASE 129 U/L (45-117); BILIRUBIN,TOTAL 0.3 mg/dL (0.2-1.0); TOTAL PROTEIN 7.9 g/dL (6.4-8.2)
[2017-11-18 16:40] LABS: MICROSCOPIC INDICATED
[2017-11-18 16:56] LABS: CULTURE INDICATED? NO
== END 2017-11-18 20:40 | disposition home or self-care (01) ==
LOC: ED 17:44
DX: K59.00 Constipation, unspecified (principal); E11.22 Type 2 diabetes mellitus with diabetic chronic kidney disease; I12.0 Hypertensive chronic kidney disease with stage 5 chronic kidney disease or end stage renal disease; N18.6 End stage renal disease; Z99.2 Dependence on renal dialysis
CPT/HCPCS: 36415; 74022; 74176; 80053; 81001; 83690; 85025; 85610; 85730; 96374; 96375; 99285; J2405

== ENCOUNTER 2018-05-10 20:17 | Emergency (ER) | payer MEDICAID ==
[~2018-05-10] VITALS: Ht 154.9 cm; Wt 60.0 kg
[2018-05-10] MEDS ORDERED: SODIUM CHLORIDE FLUSH 10ML SYR IVF ONE ×2 (20:30→21:30)
[2018-05-10] MEDS ORDERED: METOCLOPRAMIDE 5 MG/ML, 2ML IVPush ONE (20:30)
[2018-05-10 20:43] LABS: BASOPHILS # (AUTO) 0.03 x10^3/uL (0-0.1); BASOPHILS % (AUTO) 0 % (0-1); EOSINOPHILS # (AUTO) 0.02 x10^3/uL (0-0.4); EOSINOPHILS % (AUTO) 0 % (1-7); LYMPHOCYTES # (AUTO) 1.17 x10^3/uL (1-3.4); LYMPHOCYTES % (AUTO) 16 % (22-44); MD NO; MEAN CORPUSCULAR HGB CONC 34.1 g/dL (32.4-35.8); MEAN CORPUSCULAR VOLUME 93.7 fL (80-100); MEAN PLATELET VOLUME 7.7 fL (7.4-10.4); MONOCYTES # (AUTO) 0.37 x10^3/uL (0.2-0.8); MONOCYTES % (AUTO) 5 % (2-9); NEUTROPHILS # (AUTO) 5.77 x10^3/uL (1.8-6.8); NEUTROPHILS % (AUTO) 78 % (42-75); PLATELET COUNT 331 x10^3/uL (130-400); RED BLOOD COUNT 3.58 x10^6/uL (3.82-5.3); RED CELL DISTRIBUTION WIDTH 15.4 % (9.6-15.2)
[2018-05-10] MEDS ORDERED: METOCLOPRAMIDE 5 MG/ML, 2ML ONE (20:46)
[2018-05-10 20:51] LABS: ALBUMIN 2.6 g/dL (3.4-5.0); ANION GAP 5 mmol/L (5-15); CALCIUM 8.7 mg/dL (8.5-10.1); CHLORIDE 100 mmol/L (98-107)
[2018-05-10 20:55] LABS: ALANINE AMINOTRANSFERASE 11 U/L (12-78); ALKALINE PHOSPHATASE 91 U/L (45-117); BILIRUBIN,TOTAL 0.3 mg/dL (0.2-1.0); CREATININE 4.82 mg/dL (0.55-1.02); TOTAL PROTEIN 7.6 g/dL (6.4-8.2)
[2018-05-10 21:23] LABS: INTERNATIONAL NORMALIZED RATIO 0.97 (0.93-1.1)
[2018-05-10 21:29] LABS: TROPONIN I < 0.015 ng/mL (0.000-0.045)
[2018-05-10] MEDS ORDERED: MORPHINE SULFATE 4 MG/ML, 1ML IVPush PRN (21:30)
[2018-05-10] MEDS ORDERED: PROMETHAZINE 25 MG/ML, 1ML IM ONE (21:30)
[2018-05-10] MEDS ORDERED: PROMETHAZINE 25 MG/ML, 1ML ONE (21:34)
[2018-05-10] MEDS ORDERED: MORPHINE SULFATE 4 MG/ML, 1ML ONE (21:35)
[2018-05-10 22:47] VITALS: BP 177/86
[2018-05-10 23:24] LABS: MICROSCOPIC INDICATED
[2018-05-10 23:26] LABS: CULTURE INDICATED? YES
== END 2018-05-10 23:34 | disposition home or self-care (01) ==
LOC: ED 22:12
DX: K80.70 Calculus of gallbladder and bile duct without cholecystitis without obstruction (principal); R11.2 Nausea with vomiting, unspecified; G43.C0 Periodic headache syndromes in child or adult, not intractable; E11.22 Type 2 diabetes mellitus with diabetic chronic kidney disease; N18.6 End stage renal disease; Z99.2 Dependence on renal dialysis
CPT/HCPCS: 36415; 70450; 71045; 76700; 80053; 81001; 83690; 84484; 85025; 85610; 85730; 87086; 93005; 96372; 96374; 96375; 99285; J2550; J2765